=== PATIENT | male | born 1985 | race Hispanic/Latino ===

== ENCOUNTER 2020-11-28 16:42 | Emergency (ER) | payer OTHER ==
[~2020-11-28] VITALS: Ht 170.2 cm; Wt 81.6 kg
[2020-11-28] MEDS ORDERED: KETOROLAC 60 MG VIAL (30MG/ML) IM ONE (17:00)
[2020-11-28 17:03] VITALS: BP 145/98
[2020-11-28] MEDS ORDERED: IBUP-1552 PO (17:56)
[2020-11-28] MEDS ORDERED: CYCL10 PO (17:56)
== END 2020-11-28 18:11 | disposition home or self-care (01) ==
LOC: EDH 16:42
DX: S20.211A Contusion of right front wall of thorax, initial encounter (principal); Z79.1 Long term (current) use of non-steroidal anti-inflammatories (NSAID); X58.XXXA Exposure to other specified factors, initial encounter; Y93.89 Activity, other specified; Y92.89 Other specified places as the place of occurrence of the external cause; Y99.8 Other external cause status
CPT/HCPCS: 71101; 96372; 99283; J1885

== ENCOUNTER 2022-07-19 18:32 | Emergency (ER) | payer BC, OTHER ==
[~2022-07-19] VITALS: Ht 170.2 cm; Wt 79.4 kg
[~2022-07-19 18:32] MED LIST: CYCL10TA16 PO; IBUP-1552 PO
[2022-07-19] MEDS ORDERED: KETOROLAC 30MG VIAL (30MG/ML) IM ONE (19:30)
[2022-07-19] MEDS ORDERED: IBUP-2070 PO (20:20)
[2022-07-19 20:21] VITALS: BP 148/74
== END 2022-07-19 20:26 | disposition home or self-care (01) ==
LOC: EDH 18:32
DX: M25.561 Pain in right knee (principal); M79.661 Pain in right lower leg; M25.571 Pain in right ankle and joints of right foot
CPT/HCPCS: 99283; 73600; 73562; 73590; 96372; J1885